=== PATIENT | male | born 1970 | race Caucasian/White ===

== ENCOUNTER 2017-05-06 13:44 | Emergency (ER) | payer SELFPAY ==
[~2017-05-06] VITALS: Ht 172.7 cm; Wt 77.1 kg
--- NOTE | ~2017-05-06 | CR282 ---
[facility] A Service of [facility] & [facility] RADIOLOGY TEXT RESULTS PATIENT: COLBY JC LOCATION: CFTX : 68 UNIT #: [id number] AGE: [address]: Amanda Jennings SEX: M ORDER DR: [id number] [facility] [address] [place], [place] [address] [id number] E MR#: [id number] Acc #: [id number] NAME: COLBY JC : 1970 SEX: M STUDY DATE/TIME: 05/06/2017 15:11 UNIT: [facility] ROOM: STUDY DESCRIPTION: CR Wrist Min 3 View Rt Attending Physician: Amanda Jennings P.A.-C. Ordering Physician: Amanda Jennings P.A.-C. Primary Care Physician: Bernardo Amaya M.D. MEDICAL IMAGING REPORT This report is preliminary unless electronic signature is present EXAM Right wrist 05/06/2017 HISTORY 46-year-old male right wrist pain following a fall at [employer]. Patient fell today. FINDINGS Three views of the right wrist demonstrate intact carpals. Carpal joints are preserved. There is no visible fracture. Soft tissues are normal. IMPRESSION Negative right wrist. Dictated by... Kranthi Do M.D. THIS IS AN ELECTRONICALLY VERIFIED REPORT Kranthi Do M.D. at 05/07/2017 10:29 AM JUAN MIGUEL/tobi TD: 05/07/2017 09:29 JOB #: [id number] MEDICAL IMAGING REPORT Page 1 of 1 COPY
--- NOTE | ~2017-05-06 | CR211 ---
[facility] A Service of [facility] & [facility] RADIOLOGY TEXT RESULTS PATIENT: COLBY JC LOCATION: CFTX : 68 UNIT #: [id number] AGE: [address]: Amanda Jennings SEX: M ORDER DR: [id number] [facility] [address] [place], [place] [address] [id number] E MR#: [id number] Acc #: [id number] NAME: COLBY JC : 1970 SEX: M STUDY DATE/TIME: 05/06/2017 15:11 UNIT: [facility] ROOM: STUDY DESCRIPTION: CR Ribs Uni 2 View W PA Ch Rt Attending Physician: Amanda Jennings P.A.-C. Ordering Physician: Amanda Jennings P.A.-C. Primary Care Physician: Bernardo Amaya M.D. MEDICAL IMAGING REPORT This report is preliminary unless electronic signature is present EXAM Rib series with chest 05/06/2017. [facility]. HISTORY 46-year-old male patient status post fall today at [employer]. Multi location pain following fall. FINDINGS Right rib series demonstrates intact rib cortex with no rib fracture identified. Mineralization is preserved. Cortex is intact throughout. PA chest demonstrates normal cardiac size and configuration. Hilar structures and mediastinal contours are preserved. Bilateral lungs are expanded and clear. Costophrenic angles are preserved. IMPRESSION Negative right ribs. No acute chest finding. Dictated by... Kranthi Do M.D. THIS IS AN ELECTRONICALLY VERIFIED REPORT Kranthi Do M.D. at 05/07/2017 10:29 AM JUAN MIGUEL/ramírez TD: 05/07/2017 09:20 JOB #: [id number] MEDICAL IMAGING REPORT Page 1 of 1 COPY
--- NOTE | ~2017-05-06 | CR58 ---
[facility] A Service of [facility] & [facility] RADIOLOGY TEXT RESULTS PATIENT: COLBY JC LOCATION: CFTX : 69 UNIT #: [id number] AGE: [address]: Amanda Jennings SEX: M ORDER DR: [id number] [facility] [address] [place], [place] [address] [id number] E MR#: [id number] Acc #: [id number] NAME: COLBY JC : 1970 SEX: M STUDY DATE/TIME: 05/06/2017 15:10 UNIT: [facility] ROOM: STUDY DESCRIPTION: CR Cervical Spine 2 or 3 Views Attending Physician: Amanda Jennings P.A.-C. Ordering Physician: Amanda Jennings P.A.-C. Primary Care Physician: Bernardo Amaya M.D. MEDICAL IMAGING REPORT This report is preliminary unless electronic signature is present EXAM Cervical spine 3 views HISTORY Neck pain after a fall today. FINDINGS Three views of the cervical spine demonstrate minimal right upper cervical curve. Mild disc space narrowing at C2-3. No fracture or subluxation. Small anterior marginal osteophyte at C5-6. No precervical soft tissue swelling. IMPRESSION No acute findings. Dictated by... Ramana Bruno M.D. THIS IS AN ELECTRONICALLY VERIFIED REPORT Ramana Bruno M.D. at 05/07/2017 2:15 PM JUSTYNA/cary TD: 05/07/2017 10:24 JOB #: [id number] MEDICAL IMAGING REPORT Page 1 of 1 COPY
--- NOTE | ~2017-05-06 | CR230 ---
[facility] A Service of [facility] & [facility] RADIOLOGY TEXT RESULTS PATIENT: COLBY JC LOCATION: CFTX : 68 UNIT #: [id number] AGE: [address]: Amanda Jennings SEX: M ORDER DR: [id number] [facility] [address] [place], [place] [address] [id number] E MR#: [id number] Acc #: [id number] NAME: COLBY JC : 1970 SEX: M STUDY DATE/TIME: 05/06/2017 15:08 UNIT: [facility] ROOM: STUDY DESCRIPTION: CR Shoulder Min 2 View Rt Attending Physician: Amanda Jennings P.A.-C. Ordering Physician: Amanda Jennings P.A.-C. Primary Care Physician: Bernardo Amaya M.D. MEDICAL IMAGING REPORT This report is preliminary unless electronic signature is present EXAM Right shoulder, 05/06/2017, [facility]. HISTORY 46-year-old male [facility] Right shoulder pain. FINDINGS Three views of the right shoulder demonstrate no evidence for fracture and no dislocation. There are degenerative findings involving the acromioclavicular joint. Soft tissues appear normal. IMPRESSION 1. No acute right shoulder abnormality. No visualized fracture or subluxation. 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 Dictated by... Kranthi Do M.D. THIS IS AN ELECTRONICALLY VERIFIED REPORT Kranthi Do M.D. at 05/07/2017 10:29 AM JUAN MIGUEL/abena TD: 05/07/2017 09:26 JOB #: [id number] MEDICAL IMAGING REPORT Page 1 of 1 COPY
== END 2017-05-06 16:25 | disposition home or self-care (01) ==
LOC: CFTX 13:44 → CED 13:44 → CFTX 14:46
DX: S63.501A Unspecified sprain of right wrist, initial encounter (principal); S50.811A Abrasion of right forearm, initial encounter; Z23 Encounter for immunization; G43.909 Migraine, unspecified, not intractable, without status migrainosus; K21.9 Gastro-esophageal reflux disease without esophagitis; W01.0XXA Fall on same level from slipping, tripping and stumbling without subsequent striking against object, initial encounter; Y92.89 Other specified places as the place of occurrence of the external cause
CPT/HCPCS: 29125; 71101; 72040; 73030; 73110; 90471; 90715; 99283